=== PATIENT | male | born 1975 | race Hispanic/Latino ===

== ENCOUNTER 2021-07-25 21:24 | Emergency (ER) | payer SELFPAY ==
[~2021-07-25 21:24] MED LIST: GASTROGRAFIN 30 ML BOT ONE
[2021-07-26] MEDS ORDERED: GASTROGRAFIN 30 ML BOT ONE (09:34)
== END 2021-07-26 02:26 ==
LOC: ERS 21:24
DX: K94.23 Gastrostomy malfunction (principal)
CPT/HCPCS: 74018; Q9963